=== PATIENT | female | born 1955 | race Caucasian/White ===

== ENCOUNTER → 2019-02-08 15:05 | Outpatient (BNVA) | payer MEDICARE, SELFPAY | PROVIDERS: PCP Nurse Practitioner Adult Health; Visit Provider Nurse Practitioner Gerontology | DX: N32.89 Other specified disorders of bladder (principal) | CPT/HCPCS: 99213 ==

== ENCOUNTER 2019-06-09 12:05 | Outpatient (REF) | payer MEDICARE, SELFPAY ==
--- NOTE | 2019-06-09 12:00 | PAPFT_PTH ---
PATIENT: Hannah Jimenez LOC: [facility] U#:[id number] AGE/SX: 63/F ROOM: RE06/09/[address]: Shannan Valerio APRN : 1955 BED: DIS: 06/09/2019 SPEC #: [id number] RECD: 06/13/19 12:30 STATUS: ZAN REGa #: [id number] JOANNE: 06/09/19 12:[address]: Shannan Valerio DEPT: [facility] Cytology RECD BY: Cony Marcos Tissues: 1 - CX/ENDOCX FOR PAP SMEARS Procedures: PAP THIN PREP/[facility] Screening Comments: [id number] (HPV VAG SENT TO [facility])
[2019-06-15 02:44] LABS: HPV High Risk type 16, PCR Negative (Negative); HPV High Risk type 18, PCR Negative (Negative); HPV other High Risk types, PCR Negative (Negative); Specimen Source VAGINAL
== END 2019-06-09 12:25 ==
LOC: LBN 12:05
PROVIDERS: PCP Nurse Practitioner Adult Health; Visit Provider Nurse Practitioner Adult Health
DX: Z12.4 Encounter for screening for malignant neoplasm of cervix (principal); R87.89 Other abnormal findings in specimens from female genital organs; Z11.51 Encounter for screening for human papillomavirus (HPV)
CPT/HCPCS: 87624; 88142

== ENCOUNTER 2019-07-29 00:09 | Outpatient (CLI) | payer MEDICARE, SELFPAY ==
[2019-07-29 10:32] LABS: Abs Immature Grans 0.03 k/cumm (0.0-0.09); Absolute Basophil Count 0.03 k/cumm (0.0-0.2); Absolute Eosinophil Count 0.12 k/cumm (0.0-0.7); Absolute Lymphocyte Count 2.75 k/cumm (1.2-3.4); Basophils % 0.3; Eosinophils % 1.3; HCT 51.2 % (36.0-46.0); HGB 16.9 g/dL (12.0-15.5); Immature Grans % 0.3; Lymphocytes % 29.5; Mean Corpuscular Hemoglobin 30.2 pg (27.0-33.0); Mean Corpuscular Volume 91.4 fL (80-95); Mean Platelet Volume 10.6 fL (8.0-11.0); Monocytes % 7.5; Neutrophils % 61.1; Platelet Count 274 x1000/uL (130-400); RBC Distribution Width 15.3 % (11.7-14.6); White Blood Cell Count 9.33 k/cumm (4.4-10.8)
[2019-07-29 10:58] LABS: ALT 42 U/L (14-59); AST 26 U/L (15-37); Albumin 3.7 g/dL (3.4-5.0); Alkaline Phosphatase 119 U/L (46-116); Anion Gap 10.5 mmol/L (3-11); BUN 16 mg/dL (7-18); Bilirubin, Total 0.5 mg/dL (0.2-1.0); CO2 28.5 mmol/L (21.0-32.0); CREATININE 1.05 mg/dL (0.55-1.02); Calcium 9.2 mg/dL (8.5-10.1); Calculated LDL 120 mg/dL; Chloride 102 mmol/L (98-107); Cholesterol 176 mg/dL (50-200); Estimated GFR 52.76 (mL/min/1.73m2); Glucose 128 mg/dL (70-100); HDL Cholesterol 35 mg/dL (40-60); Potassium 4.3 mmol/L (3.5-5.1); Sodium 141 mmol/L (136-145); TSH (W/Ref FT4) 3.33 uIU/mL (0.36-3.74); Total Protein 7.3 g/dL (6.4-8.2); Triglyceride 108 mg/dL (30-150); Vitamin B12 307 pg/mL (193-986)
[2019-07-30 15:30] LABS: Hemoglobin A1C 6.7 % (4.5-6.2)
[2019-07-31 11:44] LABS: Vitamin D 25 Total 10.2 ng/ml (30-100)
== END 2019-07-29 00:29 ==
PROVIDERS: PCP Nurse Practitioner Adult Health; Visit Provider Nurse Practitioner Adult Health
DX: D45 Polycythemia vera; I10 Essential (primary) hypertension; E55.9 Vitamin D deficiency, unspecified; R73.01 Impaired fasting glucose
CPT/HCPCS: 36415; 80053; 80061; 82306; 82274; 82607; 83036; 84443; 85025

== ENCOUNTER 2019-07-29 10:07 | Outpatient (REF) | payer MEDICARE, SELFPAY ==
[2019-07-31 16:23] LABS: Fecal Immunochemical Test Negative (Negative)
== END 2019-07-29 10:27 ==
LOC: LBN 10:07
PROVIDERS: PCP Nurse Practitioner Adult Health; Visit Provider Nurse Practitioner Adult Health
DX: R71.8 Other abnormality of red blood cells (principal); Z12.11 Encounter for screening for malignant neoplasm of colon; Z12.12 Encounter for screening for malignant neoplasm of rectum
CPT/HCPCS: 82274

== ENCOUNTER 2020-03-01 21:16 | Outpatient (REF) | payer MEDICARE, SELFPAY ==
[2020-03-01 21:46] LABS: Hemoglobin A1C 6.2 % (3.8-5.6)
[2020-03-01 21:56] LABS: ALT 31 U/L (14-59); AST 18 U/L (15-37); Albumin 4.1 g/dL (3.4-5.0); Alkaline Phosphatase 85 U/L (46-116); Anion Gap 10.7 mmol/L (3-11); BUN 13 mg/dL (7-18); Bilirubin, Total 0.5 mg/dL (0.2-1.0); CO2 26.3 mmol/L (21.0-32.0); CREATININE 0.88 mg/dL (0.55-1.02); Calcium 9.6 mg/dL (8.5-10.1); Calculated LDL 88 mg/dL (<100); Chloride 101 mmol/L (98-107); Cholesterol 143 mg/dL (<200); Glucose 77 mg/dL (74-106); HDL Cholesterol 40 mg/dL (40-60); Potassium 4.6 mmol/L (3.5-5.1); Sodium 138 mmol/L (136-145); TSH (W/Ref FT4) 2.22 uIU/mL (0.36-3.74); Total Protein 7.5 g/dL (6.4-8.2); Triglyceride 78 mg/dL (<150)
[2020-03-04 07:33] LABS: Vitamin D 25 Total 22.6 ng/ml (30-100)
[2020-03-05 17:00] LABS: Fructosamine 209 mcmol/L (200 - 285)
== END 2020-03-01 21:36 ==
LOC: LBN 21:16
PROVIDERS: PCP Nurse Practitioner Adult Health; Visit Provider Nurse Practitioner Adult Health
DX: E11.9 Type 2 diabetes mellitus without complications (principal); E55.9 Vitamin D deficiency, unspecified; I10 Essential (primary) hypertension; E66.9 Obesity, unspecified
CPT/HCPCS: 80053; 80061; 82306; 82985; 83036; 84443

== ENCOUNTER 2020-07-31 17:16 | Outpatient (CLI) | payer MEDICARE, SELFPAY ==
[2020-07-31 17:55] LABS: HCT 54.5 % (36.0-46.0); HGB 18.2 g/dL (11.2-15.7); MCH 30.2 pg (27.0-33.0); MCHC 33.4 % (32.0-36.0); MCV 90.4 fL (80-95); MPV 11.2 fL (8.0-11.0); Platelet Count 249 10^3/uL (130-400); RBC 6.03 10^6/uL (3.93-5.22); RDW 14.3 % (11.7-14.6); RDW-SD 47.3 fL
[2020-07-31 19:13] LABS: ALT 25 U/L (14-59); AST 15 U/L (15-37); Alkaline Phosphatase 92 U/L (46-116); Anion Gap 12.9 mmol/L (3-11); BUN 15 mg/dL (7-18); Bilirubin, Total 0.7 mg/dL (0.2-1.0); CO2 24.1 mmol/L (21.0-32.0); CREATININE 0.91 mg/dL (0.55-1.02); Calcium 9.4 mg/dL (8.5-10.1); Calculated LDL 118 mg/dL (<100); Chloride 102 mmol/L (98-107); Cholesterol 174 mg/dL (<200); Glucose 86 mg/dL (74-106); HDL Cholesterol 41 mg/dL (40-60); Potassium 4.5 mmol/L (3.5-5.1); Sodium 139 mmol/L (136-145); TSH (W/Ref FT4) 2.31 uIU/mL (0.36-3.74); Total Protein 7.3 g/dL (6.4-8.2); Triglyceride 75 mg/dL (<150); Vitamin B12 405 pg/mL (193-986)
[2020-07-31 20:10] LABS: Hemoglobin A1C 5.8 % (<5.7)
[2020-08-01 05:19] LABS: Vitamin D 25 Total 42.8 ng/ml (30-100)
[2020-08-02 12:02] LABS: Fructosamine 195 mcmol/L (200 - 285)
[2020-08-05 16:56] LABS: Vitamin E, Serum 9.7 mg/L (5.5 - 17.0)
== END 2020-07-31 17:36 ==
PROVIDERS: PCP Nurse Practitioner Adult Health; Visit Provider Nurse Practitioner Adult Health
DX: E55.9 Vitamin D deficiency, unspecified (principal); E11.9 Type 2 diabetes mellitus without complications; D45 Polycythemia vera; I10 Essential (primary) hypertension; F17.200 Nicotine dependence, unspecified, uncomplicated; E66.9 Obesity, unspecified; R14.0 Abdominal distension (gaseous); R61 Generalized hyperhidrosis
CPT/HCPCS: 80053; 80061; 82306; 85027; 82607; 82985; 83036; 84443; 84446

== ENCOUNTER 2021-01-29 03:17 | Outpatient (CLI) | payer MEDICARE, SELFPAY ==
[2021-01-29 09:14] LABS: Abs Immature Grans 0.02 10^3/uL (0.0-0.06); Absolute Basophil Count 0.05 10^3/uL (0.0-0.2); Absolute Eosinophil Count 0.15 10^3/uL (0.0-0.7); Absolute Lymphocyte Count 3.14 10^3/uL (1.2-3.4); Absolute Monocyte Count 0.68 10^3/uL (0.1-0.8); Absolute Neutrophil Count 5.97 10^3/uL (1.2-6.7); Basophils % 0.5; Eosinophils % 1.5; HCT 53.8 % (36.0-46.0); HGB 17.6 g/dL (11.2-15.7); Immature Grans % 0.2; Lymphocytes % 31.4; MCH 30.3 pg (27.0-33.0); MCHC 32.7 % (32.0-36.0); MCV 92.8 fL (80-95); MPV 10.4 fL (8.0-11.0); Monocytes % 6.8; Neutrophils % 59.6; Nucleated RBC 0 %; Platelet Count 291 10^3/uL (130-400); RDW 13.7 % (11.7-14.6); WBC 10.01 10^3/uL (4.4-10.8)
[2021-01-29 09:52] LABS: Hemoglobin A1C 5.8 % (<5.7)
[2021-01-29 10:32] LABS: COMMENT (LAB VIEW ONLY) 17.25 mg/dL; Microalb ug/mg Crea 63.2 ug/mg Cr
[2021-01-29 10:40] LABS: ALT 32 U/L (14-59); AST 14 U/L (15-37); Alkaline Phosphatase 108 U/L (46-116); Anion Gap 8.6 mmol/L (3-11); BUN 16 mg/dL (7-18); Bilirubin, Total 0.3 mg/dL (0.2-1.0); CO2 29.4 mmol/L (21.0-32.0); Calcium 9.5 mg/dL (8.5-10.1); Calculated LDL 82 mg/dL (<100); Chloride 105 mmol/L (98-107); Cholesterol 135 mg/dL (<200); Estimated GFR 55.64 (mL/min/1.73m2); Glucose 96 mg/dL (74-106); HDL Cholesterol 39 mg/dL (40-60); Potassium 4.2 mmol/L (3.5-5.1); Sodium 143 mmol/L (136-145); Total Protein 7.5 g/dL (6.4-8.2); Triglyceride 73 mg/dL (<150)
[2021-01-30 05:37] LABS: Vitamin D 25 Total 54.6 ng/mL (30-100)
[2021-01-30 13:48] LABS: Fructosamine 198 mcmol/L (200 - 285)
[2021-02-03 09:49] LABS: Vitamin B12 458 pg/mL (193-986)
== END 2021-01-29 03:18 | disposition home or self-care (01) ==
LOC: LBO 03:17
PROVIDERS: PCP Nurse Practitioner Adult Health; Visit Provider Nurse Practitioner Adult Health
DX: I10 Essential (primary) hypertension (principal); E11.9 Type 2 diabetes mellitus without complications; E53.8 Deficiency of other specified B group vitamins; E55.9 Vitamin D deficiency, unspecified; F17.210 Nicotine dependence, cigarettes, uncomplicated; R71.8 Other abnormality of red blood cells; E66.9 Obesity, unspecified
CPT/HCPCS: 36415; 80053; 80061; 82306; 82043; 82570; 82607; 82985; 83036; 85025

== ENCOUNTER 2021-07-25 16:20 | Outpatient (REF) | payer MEDICARE, SELFPAY ==
[2021-07-25 18:34] LABS: HCT 53.7 % (36.0-46.0); HGB 17.7 g/dL (11.2-15.7); MCH 30.2 pg (27.0-33.0); MCV 91.5 fL (80-95); MPV 11.1 fL (8.0-11.0); Platelet Count 245 10^3/uL (130-400); RBC 5.87 10^6/uL (3.93-5.22); RDW 13.9 % (11.7-14.6); RDW-SD 47.2 fL; WBC 9.96 10^3/uL (4.4-10.8)
[2021-07-25 18:42] LABS: Hemoglobin A1C 5.9 % (<5.7)
[2021-07-25 19:09] LABS: ALT 23 U/L (14-59); AST 14 U/L (15-37); Albumin 4.1 g/dL (3.4-5.0); Alkaline Phosphatase 97 U/L (46-116); Anion Gap 10.5 mmol/L (3-11); BUN 13 mg/dL (7-18); Bilirubin, Total 0.5 mg/dL (0.2-1.0); CO2 26.5 mmol/L (21.0-32.0); CREATININE 0.9 mg/dL (0.55-1.02); Calcium 9.4 mg/dL (8.5-10.1); Calculated LDL 140 mg/dL (<100); Chloride 105 mmol/L (98-107); Cholesterol 198 mg/dL (<200); Glucose 85 mg/dL (74-106); HDL Cholesterol 41 mg/dL (40-60); Potassium 4.3 mmol/L (3.5-5.1); Sodium 142 mmol/L (136-145); Total Protein 7.5 g/dL (6.4-8.2); Triglyceride 89 mg/dL (<150); Vitamin B12 377 pg/mL (193-986)
[2021-07-28 04:58] LABS: Vitamin D 25 Total 55.7 ng/mL (30-100)
[2021-07-28 18:49] LABS: Fructosamine 201 mcmol/L (200 - 285)
== END 2021-07-25 16:21 | disposition home or self-care (01) ==
LOC: LBN 16:20
PROVIDERS: PCP Nurse Practitioner Adult Health; Visit Provider Nurse Practitioner Adult Health
DX: E11.9 Type 2 diabetes mellitus without complications; E66.9 Obesity, unspecified; Z51.81 Encounter for therapeutic drug level monitoring; E55.9 Vitamin D deficiency, unspecified; R71.8 Other abnormality of red blood cells
CPT/HCPCS: 80053; 80061; 82306; 85027; 82607; 82985; 83036

== ENCOUNTER 2022-09-08 18:16 | Outpatient (REF) | payer MEDICARE, SELFPAY ==
[2022-09-08 18:54] LABS: HCT 52.4 % (36.0-46.0); HGB 17.3 g/dL (11.2-15.7); MCH 30.2 pg (27.0-33.0); MCV 91 fL (80-95); MPV 10.5 fL (8.0-11.0); Platelet Count 285 10^3/uL (130-400); RBC 5.73 10^6/uL (3.93-5.22); RDW 14.2 % (11.7-14.6); RDW-SD 47.9 fL; WBC 10.36 10^3/uL (4.4-10.8)
[2022-09-08 19:31] LABS: ALT 23 U/L (14-59); AST 21 U/L (15-37); Albumin 3.7 g/dL (3.4-5.0); Alkaline Phosphatase 96 U/L (46-116); Anion Gap 4.2 mmol/L (3-11); BUN 20 mg/dL (7-18); Bilirubin, Total 0.3 mg/dL (0.2-1.0); CO2 30.8 mmol/L (21.0-32.0); Calcium 9.5 mg/dL (8.5-10.1); Calculated LDL 175 mg/dL (<100); Chloride 104 mmol/L (98-107); Cholesterol 251 mg/dL (<200); Estimated GFR 61.75 (mL/min/1.73m2); Glucose 72 mg/dL (74-106); HDL Cholesterol 42 mg/dL (40-60); Potassium 4.2 mmol/L (3.5-5.1); Sodium 139 mmol/L (136-145); TSH (W/Ref FT4) 5.28 uIU/mL (0.36-3.74); Total Protein 7.8 g/dL (6.4-8.2); Triglyceride 170 mg/dL (<150); Vitamin B12 391 pg/mL (193-986)
[2022-09-08 19:41] LABS: Hemoglobin A1C 5.9 % (<5.7)
[2022-09-11 00:05] LABS: Fructosamine 214 mcmol/L (200 - 285)
== END 2022-09-08 18:17 | disposition home or self-care (01) ==
LOC: LBN 18:16
PROVIDERS: PCP Nurse Practitioner Adult Health; Visit Provider Nurse Practitioner Adult Health
DX: D45 Polycythemia vera (principal); E11.9 Type 2 diabetes mellitus without complications; I10 Essential (primary) hypertension; R68.89 Other general symptoms and signs; E66.8 Other obesity
CPT/HCPCS: 80053; 80061; 85027; 82607; 82985; 83036; 84439; 84443

== ENCOUNTER 2022-09-21 11:08 | Day surgery (SDC) | payer MEDICARE, SELFPAY ==
[2022-09-21] VITALS (7 sets, daily range): BP systolic 108–185; BP diastolic 57–124; PULSE 48–60; RESP 13–18; TEMP 36.1–36.4; O2SAT 94–99; BMI 38.5
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
[2022-09-21] MEDS: Tropicam./Phenyleph. (1/2.5%) 5 ML BTL OU (12:08)
[2022-09-21] MEDS: Lactated Ringers 1,000 ML 30 ML IV (12:15)
[2022-09-21] MEDS: Lidocaine 2% Jelly 6 ML SYR (13:00)
[2022-09-21] MEDS: Povidone-Iodine Ophth 30 ML BTL (13:01)
[2022-09-21] MEDS: Balanced Salt Soln.-PLUS 500 ML BAG ×2 (13:08→13:18)
[2022-09-21] MEDS: Lidocaine 1% Pres-Free 5 ML VIAL ×2 (13:09→13:16)
[2022-09-21] MEDS: Duovisc Viscoelastic System EACH 1 EACH ×2 (13:13→13:19)
[2022-09-21] MEDS: Tetracaine 0.5% 4 ML BTL OU (13:15)
[2022-09-21] MEDS: Trypan Blue 0.06% 0.5 ML SYR (13:18)
--- NOTE | 2022-09-21 13:26 | W.PM.DSUDISC ---
Date of service: 09/21/22 Time of Service: 13:26 Discharge Plan Disposition Patient Disposition: Home Discharge Details Attending Provider: Saud Hall Primary Care Provider: Shannan Valerio Home Meds and New Rx's Prescriptions: No Action glutathione 50 mg capsule 50 mg PO .QD Rx Instructions: fatigue, hot flashes Pt reports L-glutathione is 500mg dose. EO ketoconazole 2 % cream 1 applic topical BID Qty: 30 0RF Rx Instructions: To skin lesion on RUE until resolved (2-6 weeks) alpha lipoic acid 600 mg capsule 600 mg PO DAILY [id number]-jxwsssmm (NAC) 1 cap PO DAILY Label Comments: Supplement cholecalciferol (vitamin D3) 125 mcg (5,000 unit) capsule 125 mcg PO BID vitamin E-selenium 400-50 unit-mcg tablet 1 tab PO .qd magnesium zinc 1 tab PO BID Rx Instructions: 266 mg - 10 mg Nichole-C with Bioflavonoids 500-200 mg tablet 1 tab PO BID berberine 500 mg 1 tab PO BID elderberry 1,250 mg 1 tab PO BID PRN (DME) lancets [OneTouch Delica Lancets] 33 gauge misc See Rx Instructions .ROUTE .MEDSUPPLY Qty: 100 3RF Rx Instructions: E11.9 for daily monitoring for goal A1C <7% (DME) OneTouch Verio test strips Strip See Rx Instructions .ROUTE .MEDSUPPLY Qty: 100 3RF Rx Instructions: E11.9 to monitor daily for A1C <7% lorazepam 0.5 mg tablet 0.5 mg PO ONCE PRN (Reason: anxiety) Qty: 3 0RF Rx Instructions: Take 1 hour prior to surgery for anxiety, may repeat x1 if first dose ineffective. Foot care 0 Monthly or PRN 0RF Rx Instructions: with Luz Farnsworth milk thistle capsule 250 mg PO BID Label Comments: piroxicam [Feldene] 20 mg capsule 20 mg PO DAILY PRN (Reason: arthralgia) Qty: 30 1RF Rx Instructions: Pain (DME) walker Misc See Rx Instructions .ROUTE .MEDSUPPLY Qty: 1 Rx Instructions: Dispense front wheeled walker L-glutathione 2,000 mg 1 tab PO DAILY metoprolol tartrate 25 mg tablet See Rx Instructions .ROUTE .COMPLEX Qty: 360 1RF Dose Instruction: TAKE 1 TABLET BY MOUTH TWICE DAILY Rx Instructions: TAKE 1 TABLET BY MOUTH TWICE DAILY Discharge Instructions Stand Alone Forms: Post-op Topical Cataract, Rubens Argueta (DSU) Discharge Orders Discharge Orders: Discharge Order (Routine); Ordered 09/21/22 Ordered By: Saud Hall DS: Diagnosis Discharge Diagnosis (1) Cortical cataract of right eye: Status: Resolved (2) Cortical cataract of left eye: Status: Resolved (3) Nuclear sclerotic cataract of right eye: Status: Resolved (4) Nuclear sclerotic cataract of left eye: Status: Resolved (5) Posterior subcapsular age-related cataract, right eye: Status: Resolved (6) Posterior subcapsular age-related cataract of left eye: Status: Resolved
--- NOTE | 2022-09-21 13:31 | ROE_ITS ---
Date of service: 09/21/22 Time of Service: 13:31 Operative Note Operative Note DATE OF PROCEDURE: 09/21/22 PRE-OP DIAGNOSIS: Nuclear/cortical/posterior subcapsular cataract, both eyes POST-OP DIAGNOSIS: same PROCEDURE: Immediately sequential bilateral cataract extraction using phacoemulsification with intraocular lens implants, both eyes SURGEON: Saud Hall Refer to Anesthesia Record PATHOLOGY: none sent COMPLICATIONS: None Patient was transported to: same day Patient's condition: stable Implants: Rm and Rm Vision / [employer] Tecnis [id number] Indications: Progressive decreased vision due to cataract, both eyes Procedure Description: CATARACT SURGERY OPERATIVE REPORT PREOPERATIVE DIAGNOSIS: Nuclear/cortical/posterior subcapsular cataract, both eyes POSTOPERATIVE DIAGNOSIS: Same OPERATION: Immediately sequential bilateral cataract extraction using phacoemulsification with posterior chamber intraocular lens implant, both eyes IOL OS: IOL Paint Striping Machine Operator/Model: J&J Vision / FOZIA Tecnis ZCB00 IOL Power: + 19.0 diopters IOL Serial Number: [id number] Optic Diameter: 6.0mm Haptic/Overall Diameter: 13.0mm PHACO INFO OS: Vasquez Centurion Vision System with OZil and Active Fluidics Cumulative Dispersed Energy (CDE): 7.83 seconds IOL OD: IOL Paint Striping Machine Operator/Model: J&J Vision / FOZIA Tecnis ZCB00 IOL Power: + 20.0 diopters IOL Serial Number: [id number] Optic Diameter: 6.0mm Haptic/Overall Diameter: 13.0mm PHACO INFO OD: Vasquez [employer]urion Vision System with OZil and Active Fluidics Cumulative Dispersed Energy (CDE): 5.25 seconds SURGEON: Saud Hall MD, RADHA ANESTHESIA: Monitored Anesthesia Care (MAC), with local sub-tenon's anesthetic infiltration COMPLICATIONS: None SPECIMENS: None INDICATIONS FOR PROCEDURE: The patient is a 67-year-old lady with history of diminished visual acuity in both eyes secondary to the development of significant bilateral nuclear/cortical/posterior subcapsular cataract, left eye worse than right. She is significantly symptomatic that she desires cataract surgery and attempt to improve and maximize her vision. She is unable to undergo surgery under local anesthesia with sedation due to history of anxiety/PTSD/panic attacks/claustrophobia. There is no way she can tolerate cataract surgery without general anesthesia. The option of cataract surgery is offered to the patient and she wished to proceed. In addition, she has a history of myopia and desires to remain myopic postoperatively so she can read without glasses. Postoperative refractive target is -2.25 diopters. PROCEDURE: The correct surgical eye was identified and marked as both eyes and the pupils were dilated in the preoperative area using mydriatics and cycloplegics. The dilated pupil size was 7.0 mm. . The patient was brought to the operating room where cardiopulmonary monitoring was instituted and surgical time-out was performed, confirming the correct operative eye and IOL power. Attention was first directed toward the left eye. Topical anesthesia was administered and ophthalmic povidone-iodine 5% was instilled into the conjunctival fornices. Lidocaine gel was applied to the cornea and the shazia-ocular area was prepped with Betadine 10% solution and draped in the usual sterile fashion for intraocular surgery, including an aperture drape. A Tegaderm transparent film dressing was cut in half and used to cover the lashes and lid margins. Care was taken to sequester the lashes and lid margins under the Tegaderm dressing. A lid speculum was placed between the lids of the operative eye and the Vasquez LuxOR operating microscope was maneuvered into position. Maricarmen scissors were then used to make a conjunctival buttonhole approximately 6mm posterior to the limbus in the inferonasal quadrant. Blunt dissection was carried out to expose bare sclera, and a blunt-tipped sub-tenon?s anesthesia cannula was introduced and passed posteriorly along the globe where non- preserved plain lidocaine was injected into posterior sub-Tenon?s space. A sideport knife was used to make a paracentesis port at the 12:00 postion. Intraocular phenylephrine/lidocaine was injected into the anterior chamber. The anterior chamber was filled with viscoelastic. . A 2.4mm keratome knife was used to construct a two-plane near-clear corneal tunnel extending 2.0mm into clear cornea at the 3:00 position. A flap was raised on the anterior capsule and capsulorhexis forceps were used to complete a continuous curvilinear capsulorhexis of 5.0 mm. Balanced salt solution was then used to perform cortical cleaving hydrodissection and nuclear hydrodelineation until the lens could be freely rotated within the capsular bag. The lens nucleus was then disassembled and removed within the capsular bag and iris plane using phacoemulsification. Residual cortical material was removed using the 45-degree angled silicone I/A tip with 0.3mm port. The posterior capsule was carefully polished to remove as much residual lens epithelial cells as safely possible. There was some dense residual posterior subcapsular plaque which could not be safely removed. The capsular bag was then inflated and the anterior chamber deepened with viscoelastic. The lens implant described above was inserted into the capsular bag using the FOZIA [place] Injector. A Kuglen hook was used to dial the IOL into position. Residual viscoelastic was then removed first from posterior to the IOL, then from the anterior chamber using the I/A handpiece. The lens implant was noted to center nicely within the capsular bag. The incisions were stromally hydrated, and the anterior chamber was reformed using BSS. Then 0.5cc of moxifloxacin 1.0mg/ml were injected into the capsular bag and anterior chamber. The incisions were checked with a Weck spear and found to be secure. Several drops of ophthalmic povidone-iodine 5% were then applied to the eye followed by two drops of Imprimis combination prednisolone/moxifloxacin/nepafenac solution. The drapes were removed and a clear plastic protective eye shield was placed over the eye. Attention was then directed toward the right eye, where an entirely new set of instruments, tubing, medications, fluids, gowns, gloves, and drapes were used. Topical anesthesia was administered and ophthalmic povidone-iodine 5% was instilled into the conjunctival fornices. Lidocaine gel was applied to the cornea and the shazia-ocular area was prepped with Betadine 10% solution and draped in the usual sterile fashion for intraocular surgery, including an aperture drape. A Tegaderm transparent film dressing was cut in half and used to cover the lashes and lid margins. Care was taken to sequester the lashes and lid margins under the Tegaderm dressing. A lid speculum was placed between the lids of the operative eye and the Vasquez LuxOR operating microscope was maneuvered into position. Maricarmen scissors were then used to make a conjunctival buttonhole approximately 6mm posterior to the limbus in the inferonasal quadrant. Blunt dissection was carried out to expose bare sclera, and a blunt-tipped sub-tenon?s anesthesia cannula was introduced and passed posteriorly along the globe where non- preserved plain lidocaine was injected into posterior sub-Tenon?s space. A sideport knife was used to make a paracentesis port at the 7:00 postion. Intraocular phenylephrine/lidocaine was injected into the anterior chamber. The anterior chamber was filled with viscoelastic. A 2.4mm keratome knife was used to construct a two-plane near-clear corneal tunnel extending 2.0mm into clear cornea at the 10:00 position. A flap was raised on the anterior capsule and capsulorhexis forceps were used to complete a continuous curvilinear capsulorhexis of 5.0 mm.. Balanced salt solution was then used to perform cortical cleaving hydrodissection and nuclear hydrodelineation until the lens could be freely rotated within the capsular bag. The lens nucleus was then disassembled and removed within the capsular bag and iris plane using phacoemulsification. Residual cortical material was removed using the 45-degree angled silicone I/A tip with 0.3mm port. The posterior capsule was carefully polished to remove as much residual lens epithelial cells as safely possible. The capsular bag was then inflated and the anterior chamber deepened with viscoelastic. The lens implant described above was inserted into the capsular bag using the FOZIA [place] Injector. A Kuglen hook was used to dial the IOL into position. Residual viscoelastic was then removed first from posterior to the IOL, then from the anterior chamber using the I/A handpiece. The lens implant was noted to center nicely within the capsular bag. The incisions were stromally hydrated, and the anterior chamber was reformed using BSS. Then 0.5cc of moxifloxacin 1.0mg/ml were injected into the capsular bag and anterior chamber. The incisions were checked with a Weck spear and found to be secure. Several drops of ophthalmic povidone-iodine 5% were then applied to the eye followed by two drops of Imprimis combination prednisolone/moxifloxacin/nepafenac. The drapes were removed and a clear plastic protective eye shield was placed over the eye. The patient was then returned to [facility] in stable condition.
--- NOTE | 2022-09-21 14:12 | W.ANESPOSTOP ---
Postoperative Evaluation Date, Time and Location Date Performed: 09/21/22 Time Performed: 14:12 Patient Location: PACU Vital Signs Most Recent Imported Vital Signs: Most Recent Vital Signs Temp Pulse Resp BP Pulse Ox 36.3 C L 53 L 13 130/67 95 09/21/22 14:00 09/21/22 14:00 09/21/22 14:00 09/21/22 14:00 09/21/22 14:00 Pain Score Most Recent Pain Score: Most Recent Pain Score Pain Level 0 09/21/22 14:00 Assessment Mental Status: Awake (Alert & Oriented to Patient Baseline) Airway and Respiratory Function: Patent airway with normal (patient baseline) respiratory exam Cardiovascular Function: Hemodynamically Stable Hydration Status: Adequately Hydrated Nausea & Vomiting: No Nausea or Vomiting Pain: Pain is tolerable per patient Peripheral Nerve Block: Patient did not receive a nerve block
== END 2022-09-21 15:15 | disposition home or self-care (01) ==
PROVIDERS: PCP Nurse Practitioner Adult Health; Visit Provider Ophthalmology
PROC: (CPT 66984; principal; 2022-09-21 14:30)
DX: H25.11 Age-related nuclear cataract, right eye (principal); H25.12 Age-related nuclear cataract, left eye
CPT/HCPCS: 66984; V2632; J2370; J2405; J2704

== ENCOUNTER 2023-06-04 01:06 | Outpatient (CLI) | payer MEDICARE, SELFPAY ==
[2023-06-04 09:29] LABS: FREE T4 0.98 ng/dL (0.76-1.46); TSH 3.02 uIU/mL (0.36-3.74)
[2023-06-04 09:57] LABS: Vitamin D 25 Total 56.9 ng/mL (30-100)
== END 2023-06-04 01:07 | disposition home or self-care (01) ==
LOC: LBO 01:06
PROVIDERS: PCP Nurse Practitioner Adult Health; Visit Provider Nurse Practitioner Adult Health
DX: E55.9 Vitamin D deficiency, unspecified (principal); L65.9 Nonscarring hair loss, unspecified; R49.9 Unspecified voice and resonance disorder
CPT/HCPCS: 36415; 82306; 84439; 84443

== ENCOUNTER 2023-06-07 17:29 | Outpatient (REF) | payer MEDICARE, SELFPAY ==
[2023-06-07 19:46] LABS: Abs Immature Grans 0.02 10^3/uL (0.0-0.06); Absolute Basophil Count 0.06 10^3/uL (0.0-0.2); Absolute Eosinophil Count 0.12 10^3/uL (0.0-0.7); Absolute Lymphocyte Count 2.74 10^3/uL (1.2-3.4); Absolute Monocyte Count 0.79 10^3/uL (0.1-0.8); Absolute Neutrophil Count 6.18 10^3/uL (1.2-6.7); Basophils % 0.6; Eosinophils % 1.2; HCT 52.1 % (36.0-46.0); HGB 17.3 g/dL (11.2-15.7); Immature Grans % 0.2; Lymphocytes % 27.6; MCH 29.6 pg (27.0-33.0); MCHC 33.2 % (32.0-36.0); MCV 89 fL (80-95); MPV 10.1 fL (8.0-11.0); Neutrophils % 62.4; Platelet Count 271 10^3/uL (130-400); RBC 5.84 10^6/uL (3.93-5.22); RDW 14.1 % (11.7-14.6); RDW-SD 45.5 fL; WBC 9.91 10^3/uL (4.4-10.8)
[2023-06-07 20:11] LABS: Hemoglobin A1C 6.2 % (<5.7)
[2023-06-07 20:57] LABS: ALT 35 U/L (14-59); AST 25 U/L (15-37); Albumin 3.8 g/dL (3.4-5.0); Alkaline Phosphatase 95 U/L (46-116); Anion Gap 8.7 mmol/L (3-11); BUN 16 mg/dL (7-18); Bilirubin, Total 0.3 mg/dL (0.2-1.0); CO2 27.3 mmol/L (21.0-32.0); CREATININE 0.9 mg/dL (0.55-1.02); Calcium 9.5 mg/dL (8.5-10.1); Calculated LDL 146 mg/dL (<100); Chloride 103 mmol/L (98-107); Cholesterol 218 mg/dL (<200); Estimated GFR 70.07 (mL/min/1.73m2); Folate 17.3 ng/mL (8.6-20.0); Glucose 101 mg/dL (74-106); HDL Cholesterol 46 mg/dL (40-60); Sodium 139 mmol/L (136-145); Total Protein 7.8 g/dL (6.4-8.2); Triglyceride 133 mg/dL (<150); Vitamin B12 428 pg/mL (193-986)
[2023-06-09 09:42] LABS: Prealbumin 21 mg/dL (20-40)
[2023-06-09 16:39] LABS: Fructosamine 206 mcmol/L (200 - 285)
== END 2023-06-07 17:30 | disposition home or self-care (01) ==
LOC: LBN 17:29
PROVIDERS: PCP Nurse Practitioner Adult Health; Referring Provider Nurse Practitioner Adult Health; Visit Provider Nurse Practitioner Adult Health
DX: I10 Essential (primary) hypertension (principal); E11.9 Type 2 diabetes mellitus without complications; R60.0 Localized edema; F17.210 Nicotine dependence, cigarettes, uncomplicated; Z79.899 Other long term (current) drug therapy
CPT/HCPCS: 80053; 80061; 82607; 82746; 82985; 83036; 84134; 85025

== ENCOUNTER 2024-01-04 05:14 | Outpatient (CLI) | payer MEDICARE, SELFPAY ==
[2024-01-04 09:55] LABS: Abs Immature Grans 0.03 10^3/uL (0.0-0.06); Absolute Basophil Count 0.03 10^3/uL (0.0-0.2); Absolute Eosinophil Count 0.08 10^3/uL (0.0-0.7); Absolute Lymphocyte Count 2.91 10^3/uL (1.2-3.4); Absolute Monocyte Count 0.49 10^3/uL (0.1-0.8); Absolute Neutrophil Count 4.27 10^3/uL (1.2-6.7); Basophils % 0.4; HCT 52.8 % (36.0-46.0); Immature Grans % 0.4; Lymphocytes % 37.3; MCH 29.6 pg (27.0-33.0); MCHC 32.2 % (32.0-36.0); MCV 92 fL (80-95); MPV 9.3 fL (8.0-11.0); Monocytes % 6.3; Neutrophils % 54.6; Platelet Count 259 10^3/uL (130-400); RBC 5.75 10^6/uL (3.93-5.22); RDW 14.2 % (11.7-14.6); RDW-SD 48.1 fL; WBC 7.81 10^3/uL (4.4-10.8)
[2024-01-04 10:50] LABS: ALT 34 U/L (14-59); AST 22 U/L (15-37); Albumin 3.5 g/dL (3.4-5.0); Alkaline Phosphatase 95 U/L (46-116); Anion Gap 7.5 mmol/L (3-11); BUN 14 mg/dL (7-18); Bilirubin, Total 0.3 mg/dL (0.2-1.0); CO2 30.5 mmol/L (21.0-32.0); Calcium 9.3 mg/dL (8.5-10.1); Calculated LDL 143 mg/dL (<100); Chloride 103 mmol/L (98-107); Cholesterol 204 mg/dL (<200); Estimated GFR 61.36 (mL/min/1.73m2); Ferritin 210 ng/mL (8-252); Folate 13.4 ng/mL (8.6-20.0); Glucose 132 mg/dL (74-106); HDL Cholesterol 42 mg/dL (40-60); Potassium 4.2 mmol/L (3.5-5.1); Sodium 141 mmol/L (136-145); Total Protein 7.5 g/dL (6.4-8.2); Triglyceride 96 mg/dL (<150); Vitamin B12 360 pg/mL (193-986)
[2024-01-04 11:03] LABS: Hemoglobin A1C 6.4 % (<5.7)
[2024-01-04 11:49] LABS: Vitamin D 25 Total 54.6 ng/mL (30-100)
[2024-01-04 19:14] LABS: HIV-1/2 Ag & Ab Screen Negative (Negative)
[2024-01-05 09:09] LABS: Homocysteine 11.8 umol/L (5.0-13.9)
[2024-01-05 09:43] LABS: Syphilis Serology (RPR) Negative (Negative)
[2024-01-05 19:41] LABS: Fructosamine 202 mcmol/L (200 - 285)
[2024-01-07 10:22] LABS: Methylmalonic Acid 0.19 nmol/mL (<=0.40)
== END 2024-01-04 05:15 | disposition home or self-care (01) ==
PROVIDERS: PCP Nurse Practitioner Adult Health; Visit Provider Nurse Practitioner Adult Health
DX: E11.9 Type 2 diabetes mellitus without complications; R71.8 Other abnormality of red blood cells
CPT/HCPCS: 36415; 80053; 80061; 80186; 82306; 83090; 87389; 82607; 82728; 82746; 82985; 83036; 84443; 85025; 86592

== ENCOUNTER 2024-01-10 15:44 | Outpatient (REF) | payer MEDICARE, SELFPAY ==
[2024-01-10 20:03] LABS: Bilirubin Negative (Negative); Blood Trace-lysed (Negative); Clarity Clear (Clear); Glucose Negative (Negative); Ketones Negative (Negative); Leukocyte Esterase Negative (Negative); Nitrite Negative (Negative); Urobilinogen 0.2 mg/dL (Up to 0.2); pH 5.5 (5-8)
[2024-01-10 20:10] LABS: Bacteria Rare HPF (Negative); C & S Indicated? No; Crystals Negative HPF (Negative); Epithelial Cells Many HPF (Negative); Mucus Trace (Negative); Other Cells Rare Yeast (Negative); RBC 0-2 HPF (0-2); WBC 0-2 HPF (0-5)
== END 2024-01-10 15:45 | disposition home or self-care (01) ==
LOC: LBN 15:44
PROVIDERS: PCP Nurse Practitioner Adult Health; Visit Provider Nurse Practitioner Adult Health
DX: R41.3 Other amnesia (principal); R82.998 Other abnormal findings in urine
CPT/HCPCS: 81003; 81015

== ENCOUNTER → 2024-01-20 04:56 | Outpatient (CLI) | payer MEDICARE, SELFPAY ==
--- NOTE | 2024-01-20 08:00 | DI.US_ITS ---
Exam(s) US BREAST RT COMPLETE EXAM: US BREAST RT COMPLETE CLINICAL HISTORY: Characterize inner quadrant (midline) mass,large palpable tender mass,n63.1 TECHNIQUE: Ultrasound right breast performed using standard protocol. All 4 quadrants of the right breast were evaluated sonographically including the axilla and retroareolar region. COMPARISON: No exams were available for comparison FINDINGS: There is a lobulated hypoechoic 2.4 x 3.4 x 3.6 cm mass at the 1 o'clock position of the right breast 5 cm from the nipple. Its appearance is heterogeneous and suspicious for malignancy. IMPRESSION: 1. 3.6 cm mass in the right breast corresponding to the palpable abnormality. 2. Findings are suspicious for malignancy. 3. The patient elected to forego a mammogram at this time. Recommendations are for ultrasound-guided biopsy or breast MRI examination. Findings were discussed with the patient and their PCP, Shannan cho on 01/20/2024. BI-RADS Category 5 - Highly Suggestive of Malignancy: Biopsy recommended DATA REPOSITORY:
[2024-01-20] MEDS: Barium Sulfate 2% W/V-Berry Smoothie 450 ML BTL PO ×2 (11:05→11:11)
[2024-01-20] MEDS: Normal Saline - Diluent 50 ML VIAL IJ (11:08)
[2024-01-20] MEDS: Omnipaque 350 MG/ML 500 ML BTL-Imaging package 100 ML IJ (11:09)
--- NOTE | 2024-01-20 11:20 | DI.CT_ITS ---
Exam(s) CT CHEST/ABD/PEL W EXAM: CT CHEST/ABD/PEL W CLINICAL HISTORY: ? mass of lung/abd/colon/pelvis,abd bloating,chest pain,bilat leg edema,gas TECHNIQUE: Imaging Protocol: Axial computed tomography images with coronal and sagittal reformatted images were created and reviewed CONTRAST MATERIAL: Intravenous: Omnipaque 350 contrast volume:100 mL Oral: Yes COMPARISON: No exams were available for comparison FINDINGS: CHEST: Tracheobronchial tree: Patent where visualized. Pulmonary parenchyma: No consolidation or dominant measurable mass. No architectural distortion. Visualized thyroid gland: Unremarkable. Mediastinum and Mirna: No dominant adenopathy or fluid collection. The esophagus is unremarkable. Pleura: No effusion or pneumothorax. Heart: The heart is not dilated. Coronary artery calcification is present. No pericardial effusion. Pulmonary arteries: Due to the bolus timing, pulmonary artery opacification is suboptimal. No large central pulmonary embolus is seen. Aorta: Thoracic aorta non-dilated. Atherosclerotic calcification is present. Lymph nodes: Within normal limits. Soft tissues: There is a 3 x 2.5 cm lobulated mass in the medial right breast concerning for neoplasm . (Series 5, image 208). Bones:Within normal limits for the patient's age. No aggressive osseous lesions are present. ABDOMEN: Liver: There is decreased attenuation of the liver raising the question of fatty infiltration. No me asurable mass. Portal, Superior Mesenteric, and Splenic Veins: Unremarkable. Gallbladder and Biliary Tract: No radiodense calculus or dilation. Pancreas: Normal density, no abnormal calcifications or inflammatory process. Spleen: Normal. Adrenals: No masses seen. Kidneys: Normal size, contour and axis. No radiodense stones or obstructive uropathy. No masses seen. Abdominal Aorta: Abdominal portion non-dilated. Atherosclerotic calcification is present. Bowel: There is diverticulosis of the colon without evidence of acute diverticulitis. There is no ev idence of bowel obstruction or bowel wall thickening. There is no evidence of appendicitis. Peritoneal Cavity: No ascites, collection or mesenteric inflammatory response. No free air. Lymph Nodes: Within normal limits. Bones: Within normal limits for the patient's age. The patient has bilateral total hip replacements. No aggressive osseous lesions are seen. Soft Tissues: Unremarkable. PELVIS: Bladder: The urinary bladder is incompletely visualized due to artifact from the patient's bilateral total hip replacements. The superior and anterior visualized portions of the urinary bladder are unr emarkable. Reproductive Organs: The patient appears to be status post hysterectomy. Lymph Nodes: Within normal limits. Bones: Within normal limits. IMPRESSION: 1. 3 x 2.5 cm lobulated mass in the right breast suspicious for neoplasm. Right breast biopsy or MRI of the breast is recommended for further evaluation. The patient has refused mammography. 2. No evidence of metastatic disease in the chest, abdomen or pelvis. 3. Colonic diverticulosis without evidence of acute diverticulitis. 4. Hepatic steatosis. 5. The urinary bladder is incompletely visualized due to the artifact from the patient's bilateral to chris hip replacements. Follow-up as clinically appropriate. RADIATION DOSE DELIVERED: Total DLP DATA REPOSITORY: All CT scans at this facility are submitted to the National Radiology Data Registry (NRDR) Dose Index Registry (DIR) with the [employer] (ACR). RADIATION OPTIMIZATION: All CT scans at this facility use at least one of these dose optimization te chniques: automated exposure control; mA and/or kV adjustment per patient size (includes targeted exa ms where dose is matched to clinical indication); or iterative reconstruction.
== END ==
PROVIDERS: PCP Nurse Practitioner Adult Health; Visit Provider Nurse Practitioner Adult Health
DX: R14.0 Abdominal distension (gaseous); R07.81 Pleurodynia; K62.5 Hemorrhage of anus and rectum; Z80.0 Family history of malignant neoplasm of digestive organs; R60.0 Localized edema; R14.3 Flatulence; N63.12 Unspecified lump in the right breast, upper inner quadrant; Z96.643 Presence of artificial hip joint, bilateral; K57.30 Diverticulosis of large intestine without perforation or abscess without bleeding; K76.0 Fatty (change of) liver, not elsewhere classified
CPT/HCPCS: 74177; 76642; 71260

== ENCOUNTER 2024-02-10 12:54 | Outpatient (REF) | payer MEDICARE, SELFPAY ==
--- NOTE | 2024-02-10 12:36 | BREAST_PTH ---
PATIENT: Hannah Jimenez LOC: [facility] U#:[id number] AGE/SX: 68/F ROOM: RE02/10/[address]: Melissa Madrigal : 1955 BED: DIS: 02/10/2024 SPEC #: [id number] RECD: 02/10/24 13:15 STATUS: ZAN REGa #: [id number] JOANNE: 02/10/24 12:[address]: Melissa Madrigal DEPT: Surgical Specimen RECD BY: Gregoria Paiz ENTERED: 02/10/24 13:16 SP TYPE: Breast OTHR DR: Shannan Valerio APRN Tissues: 1 - BREAST BX NEEDLE Procedures: GROSS AND MICRO LEVEL 4 [id number] IPEX ESTROGEN/PROGESTERONE RECEPTOR IPEX STAIN Comments: [id number]
== END 2024-02-10 12:55 | disposition home or self-care (01) ==
LOC: LBN 12:54
PROVIDERS: PCP Nurse Practitioner Adult Health; Visit Provider Surgery
DX: N63.15 Unspecified lump in the right breast, overlapping quadrants (principal); R92.8 Other abnormal and inconclusive findings on diagnostic imaging of breast; K62.5 Hemorrhage of anus and rectum; C50.911 Malignant neoplasm of unspecified site of right female breast
CPT/HCPCS: 88305; 88360

== ENCOUNTER → 2024-02-21 14:08 | Outpatient (BNVA) | payer MEDICARE, SELFPAY | PROVIDERS: PCP Nurse Practitioner Adult Health; Referring Provider Nurse Practitioner Adult Health; Visit Provider Surgery | DX: Z48.817 Encounter for surgical aftercare following surgery on the skin and subcutaneous tissue (principal); N63.15 Unspecified lump in the right breast, overlapping quadrants | CPT/HCPCS: 99215 ==

== ENCOUNTER 2024-03-09 13:49 | Outpatient (CLI) | payer MEDICARE, SELFPAY ==
[2024-03-09 14:04] LABS: Abs Immature Grans 0.02 10^3/uL (0.0-0.06); Absolute Basophil Count 0.04 10^3/uL (0.0-0.2); Absolute Eosinophil Count 0.11 10^3/uL (0.0-0.7); Absolute Lymphocyte Count 2.38 10^3/uL (1.2-3.4); Absolute Monocyte Count 0.66 10^3/uL (0.1-0.8); Basophils % 0.5 %; Eosinophils % 1.5 %; HCT 51.3 % (36.0-46.0); Immature Grans % 0.3 %; Lymphocytes % 32.6 %; MCH 29.8 pg (27.0-33.0); MCHC 33.1 % (32.0-36.0); MCV 90 fL (80-95); MPV 9.4 fL (8.0-11.0); Neutrophils % 56.1 %; Platelet Count 228 10^3/uL (130-400); RDW 14.5 % (11.7-14.6); RDW-SD 47.8 fL; WBC 7.31 10^3/uL (4.4-10.8)
[2024-03-09 14:17] LABS: INR 1.1 (0.9-1.1); Prothrombin Time 11.2 sec (9.1-11.1)
[2024-03-09 15:00] LABS: Ferritin 328 ng/mL (8-252)
[2024-03-10 20:24] LABS: Lidocaine <1.0 mcg/mL (1.5-5.0)
== END 2024-03-09 13:50 | disposition home or self-care (01) ==
LOC: LBO 13:49
PROVIDERS: PCP Nurse Practitioner Adult Health; Visit Provider Surgery
DX: K62.5 Hemorrhage of anus and rectum; Z80.0 Family history of malignant neoplasm of digestive organs; C50.911 Malignant neoplasm of unspecified site of right female breast; Z83.49 Family history of other endocrine, nutritional and metabolic diseases; Z14.8 Genetic carrier of other disease; E66.9 Obesity, unspecified
CPT/HCPCS: 36415; 80176; 82728; 85025; 85610

== ENCOUNTER 2024-03-14 13:41 | Observation (INO) | payer MEDICARE, SELFPAY ==
[2024-03-14] VITALS (15 sets, daily range): BP systolic 120–178; BP diastolic 66–98; PULSE 51–65; RESP 11–21; TEMP 35.9–36.9; O2SAT 92–98; BMI 39.1
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
--- NOTE | 2024-03-14 07:30 | DI.NM_ITS ---
Exam(s) NM SENTNODE INJ ONLY EXAM: NM SENTNODE INJ ONLY CLINICAL HISTORY: sentinel lymph node- right. TECHNIQUE: Injected Dose: 1 mCi Tc-99m filtered sulfur colloid Images: No images were obtained. COMPARISON: No exams were available for comparison FINDINGS: [place] node injection of the right breast was performed by Dr. Madrigal of the Department of Surgery . No images were obtained. IMPRESSION: 1. DATA REPOSITORY:
[2024-03-14] MEDS: Lactated Ringers 1,000 ML 80 ML IV ×2 (08:53→15:16)
[2024-03-14] MEDS: Normal Saline 10 ML VIAL IJ (08:54)
[2024-03-14] MEDS: DOXYCYCLINE 100 MG in Normal Saline 100 ML IVPB (08:54)
[2024-03-14] MEDS: Bupivacaine LIPOSOME/PF 133 MG/10 ML VIAL IJ (09:34)
[2024-03-14] MEDS: Bupivacaine 0.25% Pres-Free 30 ML VIAL (09:34)
--- NOTE | 2024-03-14 11:34 | W.ANESNERVE ---
Nerve Block Single Injection Procedure Date and Time Date Performed: 03/14/24 Procedure Start: 10:35 Location Where Procedure Performed Procedure Location: Operating Room Procedure Stop: 10:45 Reason Performed: Postoperative Analgesia Requesting Provider: Melissa Madrigal Timeout Performed Timeout Performed: Yes Monitoring Used ECG, Blood Pressure, SpO2 and ETCO2 Sterility Sterility: Hand Hygiene, Surgical Cap, Surgical Mask, Sterile Gloves and Chlorhexidine Sedation Given During Procedure Sedation Given (Indicate Dose Given): No Sedation given Patient Mental Status Patient Mental Status: Performed under general anesthesia Nerve Block 1st Nerve Block: Laterality: Bilateral Block Type: Other (PEC II) Ultrasound Image Saved?: Yes Needle / Catheter Used: 100mm SonoPlex II Local Anesthetic Bolus (Indicate Dose Given): Injected in 3-5ml increments after negative blood aspiration, Half of Total block solution given into each side, Bupivacaine 0.25% Dose:: 40 mL and Exparel Dose:: 20 mL Additives (Indicate Dose Given): None Ultrasound: Sterile probe cover and gel used Nerve Stimulator: Not Used Paresthesia: None Procedure Tolerated: No Complications Procedure Outcome: Successful Performed By: Dejuan Hercules
--- NOTE | 2024-03-14 11:45 | BREAST_PTH ---
PATIENT: Hannah Jimenez LOC: U#:[id number] AGE/SX: 68/F ROOM: [id number] RE03/14/[address]: Melissa Madrigal : 1955 BED: A DIS: 03/15/2024 SPEC #: [id number] RECD: 03/15/24 12:30 STATUS: ZABRINAMariam REGa #: [id number] JOANNE: 03/14/24 11:[address]: Melissa Madrigal DEPT: Surgical Specimen RECD BY: Gregoria Paiz ENTERED: 03/15/24 12:32 SP TYPE: Breast OTHR DR: Susan Stewart RN,Beth Valerio, LUKAS Davis,Cheryl Sheffield,Ladi Rueda, Telma Wade Tissues: 1 - BREAST MASTECTOMY PARTIAL/SIMPLE 2 - BREAST MASTECTOMY PARTIAL/SIMPLE 3 - BREAST INCISION/EXCISION 4 - BREAST INCISION/EXCISION Procedures: GROSS AND MICRO LEVEL 5 Comments: [id number] (SPEC #1, #3 & #4 RADIOACTIVE)
--- NOTE | 2024-03-14 13:55 | W.BRIEF ---
Date of service: 03/14/24 Time of Service: 13:55 Brief Operative Note Procedure/Pre & Post Op Diagnoses/Inspector Publications: Operation Date: 03/14/24 10:10 Actual Procedures p Mastectomy(Bilateral) - Melissa Madrigal DO s Sentinal Node Biopsy(Right) - Melissa Madrigal DO Pre-Op Diagnosis: breast cancer right Post-Op Diagnosis: same Case Staff Physician Inspector Publications: Yecenia Goldstein Anesthesia Anesthesia Type: General LMA/ETT and Primary Nerve Block Estimated Blood Loss Output, Estimated Blood Loss 100 Amount Specimen/Culture Specimen(s): 1. Right Breast Superior Lateral Long 2. Left Breast Lateral Long Stitch 3. Right Wann Node 4. Right Axillary Contents Complications Complications: None
--- NOTE | 2024-03-14 13:56 | W.PM.OP ---
Date of service: 03/14/24 Time of Service: 13:56 Operative Note Operative Note DATE OF PROCEDURE: 03/14/24 PRE-OP DIAGNOSIS: Right side breast cancer POST-OP DIAGNOSIS: same PROCEDURE: Right modified radicle mastectomy with sentinel lymph node. Left simple mastectomy. SURGEON: Melissa Madrigal SHREDDER/GRANULATOR OPERATOR: Yecenia Goldstein ANESTHESIA TYPE: General LMA/ETT and Primary Nerve Block Refer to Anesthesia Record ESTIMATED BLOOD LOSS: 100 PATHOLOGY: other COMPLICATIONS: None Patient was transported to: PACU Patient's condition: stable Procedure Description: [place] lymph node injection was done at 730 in nuclear medicine. 1 cc of technetium 99 was injected at the 12/3/6/9 o'clock position. Patient tolerated procedure well. Surgery she was transferred to the operative room. She has a documented ER/MD positive HER2 negative negative infiltrating ductal carcinoma right breast. She does not want to do adjuvant chemo or radiation. She also wants a bilateral mastectomy. Patient was counseled at length and desires bilateral mastectomy without reconstruction. Informed consent is obtained explaining risks and benefits of procedure including but not limited to: Bleeding, infection, pneumonia, blood clots, chronic pain or numbness, flap /necrosis, hematoma/bleeding, and other, poor cosmesis. She understands she will have drain placement postoperatively. patient has multiple allergies and pain control is going to be difficult for her postoperatively. There is risks of complications complications from anesthesia. Even though she is having a mastectomy, there is still risk for tumor recurrence. Depending on her final pathology, chemo and/or radiation may still be warranted. Anesthesia is administered per the department of anesthesia. Mer[place] catheter was placed. Good IV access is ensured. Methylene blue is then injected at the 12/3/6/9 o'clock Compas plates and massaged into ensure travel through the lymphatics for 2 minutes. Surgical preop marking is completed. Patient prepped and draped in usual sterile fashion using a ChloraPrep scrub solution. She did receive preop antibiotics. Timeout is completed. The right breast is attended to first. Initial baseline counts at the tumor site are 3000. The tumor lies in the upper inner quadrant at approximately the 2 o'clock position. It lies approximately 4 cm from the nipple areolar complex. It is approximately 4 cm in size. There were no lymph nodes noted on the preop CT scan. A transverse elliptical incision was made in the breast of the skin to include nipple areolar complex. The flaps were raised superiorly and just below the clavicle medially to the sternum, laterally towards the latissimus dorsi, rectus abdominus fascia. Following this, the breast tissue along with the pectoralis major fascia were dissected off the pectoralis major muscle. The dissection was started medially and extended laterally towards the left axilla. The breast was removed. The tumor is removed in situ with en bloc resection. There is complete excision of the tumor. There is no extension to the chest wall. Clips and cautery were used to provide hemostasis. The procedure is then turned towards the sentinel lymph node injection. The axillary lucita tissue envelope was grasped with a [place]. Blunt dissection is used to dissect out and identify the sentinel node. This node is blue and has counts of 130. Clips are used to place over the lymphatics and the node was excised. There are no further background counts. Another large node is encountered and this was excised in a similar fashion. It has no reactivity. Again there is no further counts noted in the axilla. There are no further enlarged nodes by palpation. Some additional axillary contents is sent over. This is noted on the pathology slip. Care was taken to avoid injury to any of the neurovascular structures. After the tissues were irrigated, we made sure there were no signs of bleeding. Bimal is placed in the wound. A MINDI drain is then out through a separate stab incision in the lateral inferior aspect of the flap, and placed in the superior and inferior breast flaps. The subcu was then approximated with interrupted 4-0 Vicryl sutures and skin was closed with interrupted 3 and 4-0 Prolene. The drains were sutured to the chest wall with 3-0 nylon sutures. Attention was then turned to the left breast. A simple mastectomy was carried out in a similar fashion excluding the sentinel lymph node procedure. A drain is placed this site as well. Both breasts were marked with a black nylon suture in the lateral long position for orientation for pathology. Sterile compression dressing was applied and the procedure was completed. The patient tolerated the procedure well without complication and transferred to recovery room in stable condition.
[2024-03-14] MEDS: HYDROmorphone 2 MG/ML SYR IVP ×2 (14:22→14:38)
--- NOTE | 2024-03-14 14:56 | PT.INIE ---
PT Notes Visit Reasons: right breast cancer Physical Therapy Day Surgery Initial Evaluation Date: [] Referring Doctor: [] PT Orders: PT CONSULT: [] Precautions: [] Patient Profile/Admitting Diagnosis: [] PMHX: [] Social History/Home Situation: [] Equipment Owned/DME: [] Subjective: [] Objective: [] General Observation: [] Mental Status: [] Pain: [] ROM: [] Right Upper Extremity: [] Left Upper Extremity: [] Right Lower Extremity: [] Left Lower Extremity: [] Strength: [] Right Upper Extremity: [] Left Upper Extremity: [] Right Lower Extremity: [] Left Lower Extremity: [] Sensation: [] Bed Mobility/Transfers: [] Supine to sit [] Sit to stand [] Stand to sit [] Bed to chair [] Gait: [] Balance: [] Static Sitting: [] Dynamic Sitting: [] Static Standing: [] Dynamic Standing: [] Special Tests: [] Mobility Limitations Standardized Measure [] [facility] 6 clicks Basic Mobility Inpatient Short Form: [] Raw Score: [] CMS Score: [] Informed Consent/Education: Patient instructed in purpose of PT consult. Packet containing [] exercise protocol has been given to patient. Education and training on initial set of exercises that can be done at home have been completed with patient. Assessment: Patient presents with clinical signs and symptoms consistent with current/admitting diagnoses that have resulted to mobility limitations, gait instability, generalized weakness, and impairment of motor control as demonstrated by the following impairment level findings: 1. Decreased strength to left knee major muscle groups 2. Impaired standing balance 3. Limitation of joint range of motion in left knee Impairments are contributing to the following functional limitations: 1. Inability to safely ambulate without assistive device 2. Increase completion time for mobility ADL performance 3. Increased fall risk Patient is assessed as a [] complexity based on the following: History: []-year-old [] with impairment level findings, functional limitations, and past medical history as indicated above Examination: Demonstrable impairment in strength, balance, and mobility level with underlying impairments and functional limitations as documented above Presentation: [] Decision Making: [] Goals: N/A. PT evaluation and 1-2 treatment sessions only for functional mobility training using recommended AD and for HEP instruction. Plan of Care/Treatment Plan: N/A. PT evaluation and 1-2 treatment session only for functional mobility training using recommended AD and for HEP instruction. DISCHARGE RECOMMENDATIONS: [] TREATMENT CODE/TIME: [] Thank you for the opportunity to participate in the care of this patient. Please sign an return this page within 30 days if you agree with the above POC. Thank you! Physician Signature Date [facility]
[2024-03-14] MEDS: Normal Saline Flush 10 ML SYR IV (15:17)
[2024-03-14] MEDS: Enoxaparin 40 MG/0.4 ML SYR SC (15:18)
[2024-03-14] MEDS: HYDROmorphone 2 MG/ML SYR 0.5 MG IVP ×3 (15:58→21:38)
--- NOTE | 2024-03-14 17:05 | W.ANESPOSTOP ---
Postoperative Evaluation Date, Time and Location Date Performed: 03/14/24 Time Performed: 16:52 Patient Location: Med/Surg Vital Signs Most Recent Imported Vital Signs: Most Recent Vital Signs Temp Pulse Resp BP Pulse Ox 35.9 C L 62 16 126/73 96 03/14/24 16:00 03/14/24 16:00 03/14/24 16:00 03/14/24 16:00 03/14/24 16:00 Pain Score Most Recent Pain Score: Most Recent Pain Score Pain Level 5 03/14/24 16:01 Assessment Mental Status: Awake (Alert & Oriented to Patient Baseline) Airway and Respiratory Function: Patent airway with normal (patient baseline) respiratory exam Cardiovascular Function: Hemodynamically Stable Hydration Status: Adequately Hydrated Nausea & Vomiting: No Nausea or Vomiting Pain: Pain is Moderate or Severe Postoperative Pain Management: Pain being addressed with medication Peripheral Nerve Block: Regional nerve block not resolved at time of post operative discharge
[2024-03-14] MEDS: Cetirizine 10 MG TAB 5 MG PO (17:21)
[2024-03-14] MEDS: Metoprolol 12.5 MG TAB 25 MG PO (20:32)
[2024-03-15] MEDS: HYDROmorphone 2 MG/ML SYR 0.5 MG IVP ×2 (00:14→02:19)
[2024-03-15 07:25] LABS: Abs Immature Grans 0.02 10^3/uL (0.0-0.06); Absolute Basophil Count 0.03 10^3/uL (0.0-0.2); Absolute Eosinophil Count 0.03 10^3/uL (0.0-0.7); Absolute Lymphocyte Count 2.01 10^3/uL (1.2-3.4); Absolute Neutrophil Count 5.77 10^3/uL (1.2-6.7); Basophils % 0.3 %; Eosinophils % 0.3 %; HCT 42.6 % (36.0-46.0); HGB 14.3 g/dL (11.2-15.7); Immature Grans % 0.2 %; Lymphocytes % 23.2 %; MCHC 33.6 % (32.0-36.0); MCV 89 fL (80-95); MPV 10.4 fL (8.0-11.0); Monocytes % 9.2 %; Neutrophils % 66.8 %; Platelet Count 223 10^3/uL (130-400); RBC 4.77 10^6/uL (3.93-5.22); RDW 14.6 % (11.7-14.6); RDW-SD 48.2 fL; WBC 8.66 10^3/uL (4.4-10.8)
[2024-03-15 07:30] VITALS: BP 107/58; PULSE 72; RESP 18; TEMP 36.9; O2SAT 92
--- NOTE | 2024-03-15 08:45 | PGE_ITS ---
Date of Service Date of service: 03/15/24 Time of Service: 08:45 Assessment and Plan Assessment and plan (1) Adenocarcinoma of right breast: Status: Acute Assessment and plan: 68-year-old woman postop day 1 from bilateral mastectomy. Her pain is controlled. She has no questions about her drains. She can be discharged home. Subjective Subjective Interval history since last seen: No complaints. She understands her drains just fine. Oral pain medication is taking care of the pain. Exam Narrative Exam Narrative: General: Nontoxic, comfortable and interactive Neuro: Alert and oriented x 3 Psych: Reasonable mood and affect and seemingly good insight and understanding Chest: Dressings intact with chest binder. Each MINDI bulb has scant serosanguineous fluid and are to bulb suction. Objective Last Vital Signs Temp 98.4 F 03/15/24 07:30 Pulse 72 03/15/24 07:30 Resp 18 03/15/24 07:30 BP 107/58 L 03/15/24 07:30 Pulse Ox 92 03/15/24 07:30 Laboratory Results - last 24 hr 03/15/24 06:20 WBC 8.66 RBC 4.77 Hgb 14.3 Hct 42.6 MCV 89 MCH 30.0 MCHC 33.6 RDW 14.6 Plt Count 223 MPV 10.4 Immature Gran % 0.2 Neutrophils % 66.8 Lymphocytes % 23.2 Monocytes % 9.2 Eosinophils % 0.3 Basophils % 0.3 Nucleated RBC % 0.0 Absolute Neutrophils 5.77 Absolute Lymphocytes 2.01 Absolute Monocytes 0.80 Absolute Eosinophils 0.03 Absolute Basophils 0.03 Time Spent with Patient Time Spent with Patient: <25 minutes Time was spent: preparing to see the patient(eg.review tests) and care coord ination
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
[2024-03-15] MEDS: Milk of Magnesia 30 ML CUP PO (10:17)
[2024-03-15] MEDS: Metoprolol 12.5 MG TAB 25 MG PO (10:18)
[2024-03-15] MEDS: Normal Saline Flush 10 ML SYR IVP (10:20)
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
[2024-03-15] MEDS: HYDROmorphone 2 MG TAB PO (12:37)
--- NOTE | 2024-03-15 13:01 | W.PM.PROGNOT ---
Date of Service Date of service: 03/15/24 Time of Service: 13:01 Assessment and Plan Assessment and plan (1) Adenocarcinoma of right breast: Status: Acute Assessment and plan: POD #1 s/p bilateral mastectomy with Dr. Madrigal Tolerating a regular diet Pain is well controlled at this time with dilaudid and ice packs. Strongly encouraged participation in drain management for tentative d/c D/C [place] Wound appears healthy. No signs or bleeding or infection at this time. Tentative d/c home later today. Subjective Subjective Interval history since last seen: Patient reports she is feeling sore but over all well. She is nervous about returning home in that she is concerned about how helpful her partner will be. She denies any nausea, vomiting, fevers or chills. Exam Const General: cooperative, healthy appearing and comfortable Orientation: alert and oriented x3 Chest Other: ABdominal binder in place for compression along her chest. This as removed and dressings were changed. Mild ecchymosis around the incision and some swelling. No erythema or induration. MINDI drains in place bilaterally with serosanguinous drainage. Resp Effort & Inspection: normal respiratory effort, no audible wheezes and no cough Objective Last Vital Signs Temp 36.9 C 03/15/24 07:30 Pulse 72 03/15/24 07:30 Resp 18 03/15/24 07:30 BP 107/58 L 03/15/24 07:30 Pulse Ox 92 03/15/24 07:30 Laboratory Results - last 24 hr 03/15/24 06:20 WBC 8.66 RBC 4.77 Hgb 14.3 Hct 42.6 MCV 89 MCH 30.0 MCHC 33.6 RDW 14.6 Plt Count 223 MPV 10.4 Immature Gran % 0.2 Neutrophils % 66.8 Lymphocytes % 23.2 Monocytes % 9.2 Eosinophils % 0.3 Basophils % 0.3 Nucleated RBC % 0.0 Absolute Neutrophils 5.77 Absolute Lymphocytes 2.01 Absolute Monocytes 0.80 Absolute Eosinophils 0.03 Absolute Basophils 0.03 Time Spent with Patient Time Spent with Patient: <25 minutes Time was spent: preparing to see the patient(eg.review tests), obtaining and/or reviewing separately otained hiistory and counseling the patient
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
[2024-03-15] MEDS: Enoxaparin 40 MG/0.4 ML SYR SC (13:26)
[2024-03-15] MEDS: Cetirizine 10 MG TAB 5 MG PO (13:26)
--- NOTE | 2024-03-15 13:47 | PDOC.HHF2F_ITS ---
Home Health Referral Home Health Orders Clinical synopsis of why skilled professionals are needed: ADLs due to decreased bilateral shoulder mobility and UE weakness. Wound care for s/p bilateral mastectomy. Registered Nurse: Check all that apply Other: Wound care for bilateral mastectomy surgical site. Physical Therapist: Check all that apply Increase strength & endurance for safe mobility at home: Ordered To design/establish home maintenance program: Ordered Fall reduction therapy program for patient with history of frequent falls: Ordered Home safety evaluation and teaching/gait training including stair management (if applicable): Ordered Occupational Therapist: Evaluate and treat for patient unable to perform ADL/IADL/self-care: Ordered Upper extremity strengthening, range and motion: Ordered Home Bound Status Requires the aid of supportive device (check all that apply): Walker Encounter Date and Reason: I certify that a FTF encounter for this patient was performed on March 15, 2024 and that such encounter was related to the primary reason the patient requires home health services. The encounter was conducted in the following manner: * By me as the certifying physician, EMPLOYMENT APPEALS EXAMINER, PA or * By an inpatient physician, EMPLOYMENT APPEALS EXAMINER or PA during an inpatient stay who communicated findings to me, Certification And Authentication I certify that I composed the above information based on my clinical judgment relating to this patient's medical condition and, if applicable, clinical findings communicated to me by the NPP or inpatient physician who performed the FTF encounter. Name of Provider that will be monitoring home health services: Melissa Madrigal
--- NOTE | 2024-03-15 17:08 | PDOC.CMPRO ---
Date of service: 03/15/24 Time of Service: 17:08 Care Management Progress Note Progress Note Text Progress Note Text: Hannah was admitted on 03/14/24 for a bilateral mastectomy for a diagnosis of adenocarcinoma of the right breast. She did well post-operatively and was discharged home today. She will have new home health services for nursing for wound care and drain management as well as PT and OT for increased strength and endurance. Hannah will follow up with her surgeon, PCP and plan of care. SDOH(Care Management) Screening Will the Patient Participate in the Screening?: Yes Do you worry about having a steady place to live?: no Problems where you live: mold and lack of heat In the past 12 months, have you had to go without electric, gas, oil or water in your home?: no Have you or anyone in your house had to go without enough food to eat?: no Has lack of transportation kept you from medical appointments or from doing things needed for daily living?: no Has anyone in your support network made you feel unsafe for any reason?: no Health Related Social Needs Health related social needs: inadequate housing(Z59.1)
== END 2024-03-15 14:19 | disposition home or self-care (01) ==
LOC: MS 15:13
PROVIDERS: Admitting Provider Surgery; PCP Nurse Practitioner Adult Health; Visit Provider Surgery
PROC: (CPT 19307; principal; 2024-03-14 10:00)
PROC: (CPT 19307; 2024-03-14 10:00)
DX: C50.311 Malignant neoplasm of lower-inner quadrant of right female breast (principal); Z80.0 Family history of malignant neoplasm of digestive organs; Z87.891 Personal history of nicotine dependence; E11.9 Type 2 diabetes mellitus without complications; K62.5 Hemorrhage of anus and rectum; H90.3 Sensorineural hearing loss, bilateral; E66.9 Obesity, unspecified; I10 Essential (primary) hypertension
CPT/HCPCS: 19307; 19303; 38792; 36415; 76942; 97162; A9541; J1650; 85025; 88307; C9290; G0378; J0665; J1170; J2405; J2704; J3475; J3490; Q9968

== ENCOUNTER → 2024-03-24 09:03 | Outpatient (BNVA) | payer MEDICARE, SELFPAY | PROVIDERS: PCP Nurse Practitioner Adult Health; Referring Provider Nurse Practitioner Adult Health; Visit Provider Physical Therapy Assistant | DX: Z48.817 Encounter for surgical aftercare following surgery on the skin and subcutaneous tissue (principal) ==

== ENCOUNTER → 2024-03-28 12:57 | Outpatient (BNVA) | payer MEDICARE, SELFPAY | PROVIDERS: PCP Nurse Practitioner Adult Health; Visit Provider Physical Therapy Assistant | DX: Z48.817 Encounter for surgical aftercare following surgery on the skin and subcutaneous tissue (principal) ==

== ENCOUNTER → 2024-04-03 10:41 | Outpatient (BNVA) | payer MEDICARE, SELFPAY | PROVIDERS: PCP Nurse Practitioner Adult Health; Referring Provider Nurse Practitioner Adult Health; Visit Provider Surgery | DX: Z48.817 Encounter for surgical aftercare following surgery on the skin and subcutaneous tissue (principal); C50.911 Malignant neoplasm of unspecified site of right female breast; L89.159 Pressure ulcer of sacral region, unspecified stage ==

== ENCOUNTER 2024-04-19 14:31 | Outpatient (REF) | payer MEDICARE, SELFPAY ==
[2024-04-19 17:13] LABS: HCT 48.7 % (36.0-46.0); HGB 16.2 g/dL (11.2-15.7); MCH 30.2 pg (27.0-33.0); MCHC 33.3 % (32.0-36.0); MCV 91 fL (80-95); MPV 11.1 fL (8.0-11.0); Platelet Count 259 10^3/uL (130-400); RBC 5.37 10^6/uL (3.93-5.22); RDW 14.6 % (11.7-14.6); RDW-SD 49.1 fL; WBC 8.52 10^3/uL (4.4-10.8)
[2024-04-19 17:18] LABS: ESR 24 mm/hr (0-30)
[2024-04-19 18:00] LABS: ALT 28 U/L (14-59); AST 21 U/L (15-37); Albumin 3.9 g/dL (3.4-5.0); Alkaline Phosphatase 74 U/L (46-116); Anion Gap 7.6 mmol/L (3-11); BUN 12 mg/dL (7-18); Bilirubin, Total 0.46 mg/dL (0.2-1.0); CO2 25.4 mmol/L (21.0-32.0); CREATININE 0.9 mg/dL (0.55-1.02); Calcium 9.6 mg/dL (8.5-10.1); Chloride 106 mmol/L (98-107); Estimated GFR 69.64 (mL/min/1.73m2); Glucose 89 mg/dL (74-106); Lipase 85 U/L (16-77); Potassium 4.5 mmol/L (3.5-5.1); Sodium 139 mmol/L (136-145); Total Protein 7.7 g/dL (6.4-8.2)
== END 2024-04-19 14:32 | disposition home or self-care (01) ==
LOC: LBN 14:31
PROVIDERS: PCP Nurse Practitioner Adult Health; Visit Provider Nurse Practitioner Adult Health
DX: C50.911 Malignant neoplasm of unspecified site of right female breast (principal); Z80.0 Family history of malignant neoplasm of digestive organs; K62.5 Hemorrhage of anus and rectum
CPT/HCPCS: 80053; 83690; 85027; 85652

== ENCOUNTER → 2024-04-26 02:25 | Outpatient (CLI) | payer MEDICARE, SELFPAY ==
--- NOTE | 2024-04-26 07:15 | DI.CT_ITS ---
Exam(s) CT CHEST/ABD/PEL W EXAM: CT CHEST/ABD/PEL W CLINICAL HISTORY: ? malignancy,rectal bleeding,family h/o colon ca,altered bowel function. TECHNIQUE: Imaging Protocol: Axial computed tomography images with coronal and sagittal reformatted images were created and reviewed CONTRAST MATERIAL: Intravenous: Omnipaque 350 Contrast volume:100 ml Oral: yes / COMPARISON: CT CT CHEST/ABD/PEL W from 01/20/2024 FINDINGS: CHEST: The images are degraded by significant noise. Tracheobronchial tree: Patent. Pulmonary parenchyma: No consolidation or dominant measurable mass. Pleura: No effusion or pneumothorax. Mediastinum: Within normal limits. Aorta: Thoracic portion non-dilated. Pulmonary arteries: No visible emboli. Heart: Normal size. No pericardial effusion. Bones: Unremarkable for age. No lytic or blastic lesions.No compression fractures. Soft tissues: Edema and multiple surgical clips in the right breast. Previous some right breast mass has been resected. Surgical clips also noted in the low left breast. ABDOMEN and PELVIS: Liver: Normal density. Improvement in previously noted fatty infiltration. Questionable area decreas ed attenuation in the medial left lobe of the liver. This is faintly visible on the prior scan. Gallbladder and biliary tract: No evidence of stones or wall thickening. No biliary dilatation. Pancreas: Normal density, no abnormal calcifications or inflammatory process. Spleen: Normal. Kidneys: Normal size, contour and axis. No radiodense stones. No obstructive uropathy. No suspicious masses seen. Adrenal glands: No masses seen. Aorta: Abdominal portion non-dilated. Lymph nodes: Within normal limits. Soft tissues: Unremarkable. Bladder: Obscured by artifact. Nearly empty. Bowel: No obstruction or bowel wall thickening. Colon is well opacified with oral contrast. Mild div erticulosis. No visible mass. Appendix is normal. Peritoneal cavity: No ascites. No focal collection. No mesenteric inflammatory response. No free ai r. Bones: Bilateral hip prostheses create artifact in pelvis. Degenerative changes in the spine. Reproductive organs: Status post hysterectomy. IMPRESSION: Chest: Status post resection of previously noted right breast mass. No evidence of metastatic diseas e. Abdomen and pelvis: No evidence a colon mass. No adenopathy. Question of a low-density lesion in th e left lobe of the liver. MRI could be considered for further evaluation. RADIATION DOSE DELIVERED: Total DLP DATA REPOSITORY: All CT scans at this facility are submitted to the National Radiology Data Registry (NRDR) Dose Index Registry (DIR) with the [employer] (A[employer]). RADIATION OPTIMIZATION: All CT scans at this facility use at least one of these dose optimization te chniques: automated exposure control; mA and/or kV adjustment per patient size (includes targeted exa ms where dose is matched to clinical indication); or iterative reconstruction.
[2024-04-26] MEDS: Barium Sulfate 2% W/V-Berry Smoothie 450 ML BTL PO (12:17)
[2024-04-26] MEDS: Barium Sulfate 2% W/V-Creamy Vanilla Smoothie 450 ML BTL PO (12:17)
[2024-04-26] MEDS: Normal Saline - Diluent 50 ML VIAL IJ (14:41)
[2024-04-26] MEDS: Omnipaque 350 MG/ML 100 ML BTL IJ (14:42)
== END ==
PROVIDERS: PCP Nurse Practitioner Adult Health; Visit Provider Nurse Practitioner Adult Health
DX: K62.5 Hemorrhage of anus and rectum (principal); Z80.0 Family history of malignant neoplasm of digestive organs; C50.911 Malignant neoplasm of unspecified site of right female breast; R19.8 Other specified symptoms and signs involving the digestive system and abdomen; R14.0 Abdominal distension (gaseous); R74.8 Abnormal levels of other serum enzymes; R19.4 Change in bowel habit; R19.5 Other fecal abnormalities; K57.30 Diverticulosis of large intestine without perforation or abscess without bleeding; Z96.643 Presence of artificial hip joint, bilateral
CPT/HCPCS: 74177; 71260; J3490

== ENCOUNTER 2024-04-28 12:24 | Outpatient (REF) | payer MEDICARE, SELFPAY ==
[2024-04-28 13:13] LABS: Anion Gap 7.6 mmol/L (3-11); BUN 12 mg/dL (7-18); CO2 31.4 mmol/L (21.0-32.0); CREATININE 0.9 mg/dL (0.55-1.02); Calcium 9.8 mg/dL (8.5-10.1); Chloride 105 mmol/L (98-107); Estimated GFR 69.64 (mL/min/1.73m2); Glucose 103 mg/dL (74-106); Potassium 4.5 mmol/L (3.5-5.1); Sodium 144 mmol/L (136-145)
== END 2024-04-28 12:25 | disposition home or self-care (01) ==
LOC: LBN 12:24
PROVIDERS: PCP Nurse Practitioner Adult Health; Visit Provider Nurse Practitioner Adult Health
DX: E11.9 Type 2 diabetes mellitus without complications (principal); C50.911 Malignant neoplasm of unspecified site of right female breast
CPT/HCPCS: 80048

== ENCOUNTER 2025-07-09 11:09 | Outpatient (REF) | payer MEDICARE, SELFPAY ==
[2025-07-09 18:11] LABS: HCT 50.4 % (36.0-46.0); HGB 16.6 g/dL (11.2-15.7); MCH 29.2 pg (27.0-33.0); MCHC 32.9 % (32.0-36.0); MCV 89 fL (80-95); MPV 10.4 fL (8.0-11.0); Platelet Count 268 10^3/uL (130-400); RBC 5.68 10^6/uL (3.93-5.22); RDW 14.2 % (11.7-14.6); RDW-SD 46.5 fL; WBC 6.96 10^3/uL (4.4-10.8)
[2025-07-09 18:57] LABS: Calculated LDL 133 mg/dL (<100); Cholesterol 189 mg/dL (<200); Folate 15.4 ng/mL (8.6-20.0); HDL Cholesterol 40 mg/dL (>or=50); Magnesium 2.2 mg/dL (1.8-2.4); TSH (W/Ref FT4) 1.34 uIU/mL (0.36-3.74); Triglyceride 80 mg/dL (<150); Vitamin B12 953 pg/mL (193-986)
[2025-07-09 19:15] LABS: Lipase 101 U/L (<78)
[2025-07-09 19:42] LABS: ALT 27 U/L (14-59); AST 17 U/L (15-37); Albumin 3.8 g/dL (3.4-5.0); Alkaline Phosphatase 89 U/L (46-116); Anion Gap 11.5 mmol/L (3-11); BUN 12 mg/dL (7-18); Bilirubin, Total 0.4 mg/dL (0.2-1.0); CO2 25.5 mmol/L (21.0-32.0); Calcium 9.0 mg/dL (8.5-10.1); Chloride 104 mmol/L (98-107); Estimated GFR 60.61 (mL/min/1.73m2); Glucose 116 mg/dL (74-106); Potassium 4.4 mmol/L (3.5-5.1); Sodium 141 mmol/L (136-145); Total Protein 7.5 g/dL (6.4-8.2)
[2025-07-10 22:45] LABS: Lab Add On Test DONE
[2025-07-11 18:32] LABS: CEA <0.5 ng/mL (See Note)
[2025-07-13 10:44] LABS: Lab Add On Test DONE
[2025-07-13 11:19] LABS: Vitamin D 25 Total 57 ng/mL (30-100)
== END 2025-07-09 11:10 | disposition home or self-care (01) ==
LOC: LBN 11:09
PROVIDERS: PCP Nurse Practitioner Adult Health; Visit Provider Nurse Practitioner Adult Health
DX: Z91.09 Other allergy status, other than to drugs and biological substances (principal); I10 Essential (primary) hypertension; E11.9 Type 2 diabetes mellitus without complications; E66.9 Obesity, unspecified; Z80.0 Family history of malignant neoplasm of digestive organs; R74.8 Abnormal levels of other serum enzymes; C50.911 Malignant neoplasm of unspecified site of right female breast
CPT/HCPCS: 80053; 80061; 82306; 83690; 85027; 82378; 82607; 82746; 82985; 83735; 84443; 84446